=== PATIENT | female | born 1960 | race Caucasian/White ===

== ENCOUNTER 2021-08-28 07:42 | Day surgery (SDC) | payer OTHER ==
[~2021-08-28 07:42] MED LIST: AVAPRO300 MG PO; CHILDREN'S ASPI81 MG PO; DULCOLAX PO; NORFLEX100MG PO; Neurontin PO; OXYC1TAB9 PO; SYNTHROID75 MCG PO; TOPROL XL25 M1 PO; XARELTO10 MG PO
[2021-08-28] MEDS ORDERED: IBU600 MG PO (12:24)
== END 2021-08-28 15:50 | disposition home or self-care (01) ==
LOC: CIR.AMB 07:42
PROVIDERS: ATTEND Obstetrics & Gynecology Gynecology
DX: N84.0 Polyp of corpus uteri (principal); Z20.822 Contact with and (suspected) exposure to COVID-19; Z91.013 Allergy to seafood; I10 Essential (primary) hypertension; I34.1 Nonrheumatic mitral (valve) prolapse